=== PATIENT | male | born 1990 | race Caucasian/White ===

== ENCOUNTER 2017-02-07 05:39 | Emergency (ER) | payer OTHER ==
[~2017-02-07 05:39] MED LIST: CYCL-36 PO; LORT7.5T3 PO
[2017-02-07 05:41] VITALS: BP 170/100; PULSE 85; RESP 16; TEMP 98.2; O2SAT 98
[2017-02-07] MEDS ORDERED: SODIUM CHLOR 0.9% 1000 ML INJ 1,000 ML IV SCH (06:03)
[2017-02-07 06:04] LABS: MEAN CORPUSCULAR HGB CONC 36.1 % (32.0-36.0)
[2017-02-07] MEDS ORDERED: ANDR1.62 TOPICAL (06:06)
[2017-02-07 06:12] VITALS: BP 143/85; PULSE 85; RESP 18; O2SAT 96
--- NOTE | 2017-02-07 06:13 | PD ---
HPI Chief Complaint: Flank/Kidney Pain Time Seen by Provider: 06:03 Travel History International Travel<30 days: No Contact w/Intl Traveler<30days: No Traveled to known affect area: No History of Present Illness HPI 27-year-old male with history of no significant past medical issues, presents to the ER today with 8 out of 10 left flank pains that started on its own this morning. He feels nauseous but denies any vomiting. In addition, he has noticed dark colored urine. He does not know any exacerbating or alleviating factors. Modifying Factors: None Associated Signs & Symptoms: Left flank pain, dark colored urine Risk Factors: None PFSH Past Medical History Musculoskeletal: Yes (L KNEE SX) Reproductive: Yes (LOW TESTOSTERONE LEVELS) Social History Alcohol Use: No Tobacco Use: Yes (chew tobacco 1 can per day) Substance Use: No Allergies-Medications (Allergen,Severity, Reaction): Coded Allergies: No Known Allergies (Unverified , 02/07/17) Reported Meds & Prescriptions Reported Meds & Active Scripts Active Reported Androgel Pump Topical (Testosterone) 1.62 % Gel 20.25 Mg TOPICAL DAILY Review of Systems Except as stated in HPI: all other systems reviewed are Neg Physical Exam Narrative GENERAL: Well-developed young white male patient currently in mild distress. Awake and oriented 3. SKIN: Focused skin assessment warm/dry. HEAD: Atraumatic. Normocephalic. EYES: Pupils equal and round. No scleral icterus. No injection or drainage. ENT: No nasal bleeding or discharge. Mucous membranes pink and moist. NECK: Trachea midline. No JVD. CARDIOVASCULAR: Regular rate and rhythm. No murmur appreciated. RESPIRATORY: No accessory muscle use. Clear to auscultation. Breath sounds equal bilaterally. GASTROINTESTINAL: Abdomen soft, non-tender, nondistended. Hepatic and splenic margins not palpable. MUSCULOSKELETAL: No obvious deformities. No clubbing. No cyanosis. No edema. NEUROLOGICAL: Awake and alert. No obvious cranial nerve deficits. Motor grossly within normal limits. Normal speech. PSYCHIATRIC: Appropriate mood and affect; insight and judgment normal. Data Data Last Documented VS Vital Signs Date Time Temp Pulse Resp B/P Pulse Ox O2 Delivery O2 Flow Rate FiO2 02/07/17 06:12 85 18 143/85 96 Room Air 02/07/17 05:41 98.2 Orders Urinalysis - C+S If Indicated (02/07/17 05:51) Complete Blood Count With Diff (02/07/17 06:03) Comprehensive Metabolic Panel (02/07/17 06:03) Lipase (02/07/17 06:03) Ct Abd/Pel W/O Iv Contrast (02/07/17 06:03) Iv Access Insert/Monitor (02/07/17 06:03) Ecg Monitoring (02/07/17 06:03) Oximetry (02/07/17 06:03) Ondansetron Inj (Zofran Inj) (02/07/17 06:15) Sodium Chlor 0.9% 1000 Ml Inj (Ns 1000 M (02/07/17 06:03) Sodium Chloride 0.9% Flush (Ns Flush) (02/07/17 06:15) Ketorolac Inj (Toradol Inj) (02/07/17 06:15) Labs Laboratory Tests Test 02/07/17 02/07/17 06:00 06:12 Urine Color RED Urine Turbidity CLOUDY Urine pH 5.5 Urine Specific Sunflower 1.023 Urine Protein 30 mg/dL Urine Glucose (UA) NEG mg/dL Urine Ketones NEG mg/dL Urine Occult Blood LARGE Urine Nitrite NEG Urine Bilirubin NEG Urine Urobilinogen LESS THAN 2.0 MG/DL Urine Leukocyte Esterase NEG Urine RBC /hpf Urine WBC 7 /hpf Urine WBC Clumps FEW Urine Bacteria OCC /hpf Urine Mucus MANY /lpf Microscopic Urinalysis Comment CULT NOT INDICATED White Blood Count 7.0 TH/MM3 Red Blood Count 5.60 MIL/MM3 Hemoglobin 16.5 GM/DL Hematocrit 45.9 % Mean Corpuscular Volume 81.9 FL Mean Corpuscular Hemoglobin 29.5 PG Mean Corpuscular Hemoglobin 36.1 % Concent Red Cell Distribution Width 12.7 % Platelet Count 291 TH/MM3 Mean Platelet Volume 7.9 FL Neutrophils (%) (Auto) 68.1 % Lymphocytes (%) (Auto) 25.0 % Monocytes (%) (Auto) 4.8 % Eosinophils (%) (Auto) 1.4 % Basophils (%) (Auto) 0.7 % Neutrophils # (Auto) 4.8 TH/MM3 Lymphocytes # (Auto) 1.8 TH/MM3 Monocytes # (Auto) 0.3 TH/MM3 Eosinophils # (Auto) 0.1 TH/MM3 Basophils # (Auto) 0.0 TH/MM3 CBC Comment AUTO DIFF Sodium Level 139 MEQ/L Potassium Level 4.4 MEQ/L Chloride Level 102 MEQ/L Carbon Dioxide Level 30.3 MEQ/L Anion Gap 7 MEQ/L Blood Urea Nitrogen 20 MG/DL Creatinine 1.08 MG/DL Estimat Glomerular Filtration 83 ML/MIN Rate Random Glucose 90 MG/DL Calcium Level 9.2 MG/DL Total Bilirubin 0.5 MG/DL Aspartate Amino Transf 20 U/L (AST/SGOT) Alanine Aminotransferase 42 U/L (ALT/SGPT) Alkaline Phosphatase 71 U/L Total Protein 7.7 GM/DL Albumin 4.7 GM/DL Lipase 107 U/L [facility] Medical Decision Making Medical Screen Exam Complete: Yes Emergency Medical Condition: Yes Medical Record Reviewed: Yes Interpretation(s) Laboratory Tests Test 02/07/17 02/07/17 06:00 06:12 Urine Color RED (YELLW/STRAW) Urine Turbidity CLOUDY (CLEAR) Urine Protein 30 mg/dL (NEG-TRACE) Urine Occult Blood LARGE (NEG) Urine WBC 7 /hpf (0-5) Urine WBC Clumps FEW (NONE) Urine Bacteria OCC /hpf (NONE) Urine Mucus MANY /lpf (OCC) Mean Corpuscular Hemoglobin 36.1 % Concent (32.0-36.0) Blood Urea Nitrogen 20 MG/DL (7-18) Estimat Glomerular Filtration 83 ML/MIN (>89) Rate Differential Diagnosis Left flank pain, dark urineUTI versus renal colic versus dehydration versus metabolic issues Narrative Course CAT scan shows kidney stone which is already in the bladder. Lab work shows hematuria indicative of likely passed stone. On reevaluation at 6:50 AM, he is much more comfortable. At this point, my plan would be to release him with symptomatic relief or pain and follow-up to urology. Return for any worsening in symptoms as necessary. The plan has discussed with him and he states understanding. Diagnosis Primary Impression: Renal colic on left side Med/Other Pt SpecificInfo: Prescription(s) given Scripts Ibuprofen (Motrin Ib)200 Mg [id number] Mg PO QID PRN (PAIN SCALE 1 TO 10) #21 Prov:Debbi Tejada MD 02/07/17 Disposition: 01 DISCHARGE HOME Condition: Stable Debbi Tejada MD February 07, 2017 06:13
[2017-02-07] MEDS ORDERED: ONDANSETRON HCL 4 MG/2 ML VIAL IVP ONE (06:15)
[2017-02-07] MEDS ORDERED: SODIUM CHLORIDE 0.9% FLUSH 10 ML FLUSH IV FLUSH PRN (06:15)
[2017-02-07] MEDS ORDERED: KETOROLAC TROMETHAMINE 30 MG/ML (IVP) VIAL IVP ONE (06:15)
[2017-02-07 06:23] LABS: BACTERIA, URINE OCC /hpf; BLOOD, URINE LARGE (NEG); COMMENT (UR) CULT NOT INDICATED; CULTURE IF INDICATED CULT NOT INDICATED; GLUCOSE,URINE NEG (NEG); KETONE, URINE NEG (NEG); MUCUS URINE MANY /lpf (OCC); NITRITE,URINE NEG (NEG); PH, URINE 5.5 (5.0-8.5); URINE COLOR RED (YELLW/STRAW)
[2017-02-07 06:27] LABS: AUTOMATED NEUTROPHIL # 4.8 TH/MM3 (1.8-7.7); BASOPHIL % 0.7 % (0.0-2.0); EOSINOPHIL # 0.1 TH/MM3 (0-0.4); EOSINOPHIL % 1.4 % (0.0-4.0); HEMATOCRIT 45.9 % (39.0-51.0); LYMPHOCYTE # 1.8 TH/MM3 (1.0-4.8); MEAN CELL VOLUME 81.9 FL (80.0-100.0); MEAN CORPUSCULAR HEMOGLOBIN 29.5 PG (27.0-34.0); MONO % 4.8 % (0.0-8.0); NEUT % 68.1 % (16.0-70.0); PLATELET COUNT 291 TH/MM3 (150-450); RED CELL DISTRIBUTION WIDTH 12.7 % (11.6-17.2)
[2017-02-07 06:29] LABS: HEMO FLAGS AUTO DIFF
[2017-02-07 06:47] LABS: ANION GAP 7 MEQ/L (5-15); AST (GOT) 20 U/L (15-37); BICARBONATE 30.3 MEQ/L (21.0-32.0); BLOOD UREA NITROGEN 20 MG/DL (7-18); CHLORIDE 102 MEQ/L (98-107); GLOMERULAR FILTRATION RATE 83 ML/MIN (>89); POTASSIUM 4.4 MEQ/L (3.5-5.1); SODIUM (NA) 139 MEQ/L (136-145)
--- NOTE | 2017-02-07 06:49 | RADRPT ---
EXAM DATE/TIME: 02/07/2017 06:37 [facility] COMPARISON: No previous studies available for comparison. INDICATIONS : Left flank pain. ORAL CONTRAST: No oral contrast ingested. RADIATION DOSE: 8.47 CTDIvol (mGy) MEDICAL HISTORY : None SURGICAL HISTORY : None. ENCOUNTER: Initial ACUITY: 1 day PAIN SCALE: 5/10 LOCATION: Left flank TECHNIQUE: Volumetric scanning of the abdomen and pelvis was performed. Using automated exposure control and ad justment of the mA and/or kV according to patient size, radiation dose was kept as low as reasonably achievable to obtain optimal diagnostic quality images. FINDINGS: LOWER LUNGS: The visualized lower lungs are clear. LIVER: Homogeneous density without lesion. There is no dilation of the biliary tree. No calcified gallston es. SPLEEN: Normal size without lesion. PANCREAS: Within normal limits. KIDNEYS: Normal in size and shape. There is mild hydronephrosis of the left kidney. 2 mm stone upper pole left kidney remains. 3 mm stone within the bladder likely originating from the left ureter. ADRENAL GLANDS: Within normal limits. VASCULAR: There is no aortic aneurysm. BOWEL/MESENTERY: The stomach, small bowel, and colon demonstrate no acute abnormality. There is no free intraperitone al air or fluid. ABDOMINAL WALL: Within normal limits. RETROPERITONEUM: There is no lymphadenopathy. BLADDER: No wall thickening or mass. Left-sided calcification I suspect is within the lumen of the bladder. REPRODUCTIVE: Within normal limits. INGUINAL: There is no lymphadenopathy or hernia. MUSCULOSKELETAL: Within normal limits for patient age. CONCLUSION: Mild hydronephrosis and hydroureter of the left kidney. 3 mm stone I believe in the lumen of the blad grant on the left side likely passed stone. 2 mm stone remains in the upper pole of left kidney Jesus Reich MD on February 07, 2017 at 6:45 Board Certified Radiologist. This report was verified electronically.
[2017-02-07 06:50] LABS: ALKALINE PHOSPHATASE 71 U/L (45-117); ALT (GPT) 42 U/L (12-78); TOTAL BILIRUBIN ADULT 0.5 MG/DL (0.2-1.0)
[2017-02-07] MEDS ORDERED: IBUP-1129 PO (06:54)
[2017-02-07 06:55] LABS: SCAN/DIFF AUTO DIFF CONFIRMED
== END 2017-02-07 07:43 | disposition home or self-care (01) ==
LOC: NEPC 05:39
DX: N23 Unspecified renal colic (principal); R11.0 Nausea; R82.99 Other abnormal findings in urine; R31.9 Hematuria, unspecified; N20.0 Calculus of kidney; Z72.0 Tobacco use
CPT/HCPCS: 74176; 80053; 81001; 83690; 85025; 96374; 96375; 99285; J1885; J2405; J7030